=== PATIENT | male | born 1950 | race Caucasian/White ===

== ENCOUNTER 2016-09-09 17:43 | Emergency (ER) | payer OTHER ==
[~2016-09-09 17:43] MED LIST: ALDACTONE25 MG PO; BUMETANIDE1 MG PO; CARVEDILOL25 MG PO; CLONAZEPAM1 MG PO; CRESTOR20 MG PO; LANTUS SOL100 UNITS/ SC; LYRICA100 MG PO; NOVOLOG PE100 UNITS/ SC; TRAZODONE HCL50 MG PO; TRIAMCINOLONE0.025 % TOP; VICODIN EQUIVAL1 TAB PO
--- NOTE | 2016-09-09 18:53 | DIAGNOSTIC IMAGING REPORT ---
PROCEDURE: XR KNEE 4 VIEWS - LEFT INDICATION: TRAUMA/INJURY TECHNIQUE: Four views. COMPARISON: None. FINDINGS: Mild patellofemoral compartment degenerative changes. No fracture or effusion. IMPRESSION: 1. Mild patellofemoral compartment degenerative changes.
--- NOTE | 2016-09-09 18:54 | ED CLINICAL REPORT ---
Clinical Report - Physicians/Mid Levels [facility] [address] [place] [address] 09/09/2016 17:44 Patient: RAIMUNDO KAMARA Time Seen: 18:09 Sep 09 2016. Arrived- By private vehicle. Historian- patient. HISTORY OF PRESENT ILLNESS Chief Complaint: Injury to left knee. The injury happened just prior to arrival. Occurred at home. The patient sustained a direct blow and crush injury. Patient is experiencing moderate pain. Patient denies injury to the head or neck. (patient reports while working on his car, losing balance, and sustaining injury to his left knee, as the wheel fell onto his left knee.). REVIEW OF SYSTEMS The patient complains of pain on weight bearing. All systems otherwise negative, except as recorded above. PAST HISTORY The patient has not had a prior injury to the same area. Problems: Headache. Diverticulitis. Fall. Sinusitis. Diarrhea. Near Syncope. Sciatica. Lumbar Strain. Renal Insufficiency. Pulmonary Nodule. Hypomagnesemia. Pharyngitis. Hyperglycemia. Cellulitis. Rt great toe pain and swelling. Cardiovascular Risk Factors. Skin Rash. Tetanus Status. Lower Extremity Pain. Peripheral Neuropathy. Atypical Chest Pain. Neuropathy. Anxiety disorder. Bursitis. Hypertension. Esophagitis. Immunizations. Diabetes Mellitus. Additional Surgeries: Cataract Surgery. Hip Surgery. Medications: Carvedilol Oral 100mg , at night . ClonazePAM Oral 1 mg, 3x a day. Lyrica Oral (Capsule 200 mg) 1 capsule, 3 x daily (ran out ). Novolog regular . Trazodone HCl Oral 100 mg, at bedtime. Allergies: No Known Drug Allergy. SOCIAL HISTORY Never smoker. No alcohol use or drug use. ADDITIONAL NOTES The nursing notes have been reviewed. PHYSICAL EXAM Vital Signs: 09/09/2016 17:52 BP: 155/84. HR: 85. RR: 20. O2 saturation: 98%. Temp: 98.2 F. Appearance: Alert. Head: Head atraumatic. ENT: Ears normal. CVS: Normal heart rate and rhythm. Heart sounds normal. Respiratory: No respiratory distress. Breath sounds normal. Back: Normal inspection. No tenderness. No vertebral point tenderness. Skin: Skin intact. Skin warm. Normal skin color. Extremities: Left hip. No tenderness or swelling. Left knee: mild tenderness and swelling located in the patella. Limited ROM secondary to pain (diminished extension). Joint effusion present. No abrasion or ecchymosis. Left leg. No tenderness or swelling. Gait: Limping gait. Neuro, Vascular and Tendons: Vascular status intact. Neuro: Oriented X 3. LABS, X-RAYS, AND EKG Lt Knee X-ray: (IMPRESSION: 1. Mild patellofemoral compartment degenerative changes. Electronically Final signed by:aPpi Small MD 09/09/2016 6:52:59 PM). PROGRESS AND PROCEDURES Course of Care: Patient here in the ER stable, no signs of any fracture. Able to ambulate. No other injuries besides the left knee. Hip and ankle are unremarkable. Patient with no pain out of proportion to injury. No laceration/ abrasion/ ecchymosis. Patient is stable. Physical exam findings are improved. Symptoms better. Patient/family counseled. Disposition: Discharged. Condition: good. CLINICAL IMPRESSION Contusion to the left knee. INSTRUCTIONS Apply ice. Elevate affected areas above chest level. You may walk and bear weight as tolerated. Prescription Medications: Hydrocodone/APAP 5mg / 325mg: take 1 orally every 6 hours as needed for pain. Dispense twelve (12). No refill. Follow-up: Follow up with your doctor in three days. (Electronically signed by Batsheva Martin P.A.-C 09/09/2016 20:10)
--- NOTE | 2016-09-09 18:54 | ED NURSING NOTES ---
Clinical Report - Nurses [facility] [address] [place] [address] 09/09/2016 17:44 Patient: RAIMUNDO KAMARA TRIAGE Triage time 17:53 Sep 09 2016. Acuity: LEVEL 5. Chief Complaint: (knee injury). --17:57 Tyshawn Perez R.N. 17:52 09/09/16. BP: 155/84. HR: 85. RR: 20. O2 saturation: 98%. Temp: 98.2 F. Pain level now 03/12. --17:57 Tyshawn Perez R.N. Weight: 108.8 kg stated. Height/Length: 72 inches Per Patient. BMI: 32.6. --17:56 Tyshawn Perez R.N. Medications Carvedilol Oral 100mg , at night . ClonazePAM Oral 1 mg, 3x a day. Lyrica Oral (Capsule 200 mg) 1 capsule, 3 x daily (ran out ). Novolog regular . Trazodone HCl Oral 100 mg, at bedtime. --17:55 Tyshawn Perez R.N. Allergies No Known Drug Allergy. --17:55 Tyshawn Perez R.N. History ( Pt reports that a wheel fell on his Left knee while he was working on his care. no obvious deformity no redness or bruising). This started just prior to arrival. SOCIAL HX: Never smoker. No alcohol use or drug use. --17:57 Tyshawn Perez R.N. PROBLEMS: Diverticulitis. Concussion. Near Syncope. Pulmonary Nodule. Hyperglycemia. Bursitis. Hypertension. Diabetes Mellitus. --17:56 Tyshawn Perez R.N. Interventions ID band on patient. To treatment room. --17:57 Tyshawn Perez R.N. PHYSICAL ASSESSMENT GENERAL / NEURO / PSYCH: Alert. Oriented X 4. Appears in no acute distress. HEENT: Pupils equal, round and reactive to light. RESPIRATORY: Respirations not labored. Breath sounds within normal limits. SKIN: Skin is dry. --17:57 Tyshawn Perez R.N. NURSING PROGRESS NOTES Patient returned from radiology by wheelchair with tech. --18:11 Inge Chen R.N. ( faviola wrap to left knee.). --18:44 Satinder Infante. DISPOSITION / DISCHARGE 18:57 09/09/16. BP: 165/77. HR: 83. RR: 18. O2 saturation: 98%. Pain level now 8/10. --18:59 Inge Chen R.N. Condition at departure: stable. No learning barriers present. Discharge instructions provided and reviewed with the patient. Reviewed medication(s) side effects, precautions, dosing and course information. Prescription(s) given to the patient. Reviewed referral to family practice for followup. Verbalized understanding. Written instructions provided in Z[place]ian. The patient was discharged home and accompanied by wearing apparel presser. He left the Emergency Department ambulatory and via private vehicle. Drapery Hanger driving. Medication list reviewed and validated. --18:59 Inge Chen R.N. Departure time: 18:59. --18:59 Inge Chen R.N. Locked/Released at 09/09/2016 21:01 by Inge Chen R.N.
--- NOTE | 2016-09-09 18:54 | ED CLINICAL REPORT ---
Clinical Report - Physicians/Mid Levels [facility] [address] [place] [address] 09/09/2016 17:44 Patient: RAIMUNDO KAMARA Time Seen: 18:09 Sep 09 2016. Arrived- By private vehicle. Historian- patient. HISTORY OF PRESENT ILLNESS Chief Complaint: Injury to left knee. The injury happened just prior to arrival. Occurred at home. The patient sustained a direct blow and crush injury. Patient is experiencing moderate pain. Patient denies injury to the head or neck. (patient reports while working on his car, losing balance, and sustaining injury to his left knee, as the wheel fell onto his left knee.). REVIEW OF SYSTEMS The patient complains of pain on weight bearing. All systems otherwise negative, except as recorded above. PAST HISTORY The patient has not had a prior injury to the same area. Problems: Headache. Diverticulitis. Fall. Sinusitis. Diarrhea. Near Syncope. Sciatica. Lumbar Strain. Renal Insufficiency. Pulmonary Nodule. Hypomagnesemia. Pharyngitis. Hyperglycemia. Cellulitis. Rt great toe pain and swelling. Cardiovascular Risk Factors. Skin Rash. Tetanus Status. Lower Extremity Pain. Peripheral Neuropathy. Atypical Chest Pain. Neuropathy. Anxiety disorder. Bursitis. Hypertension. Esophagitis. Immunizations. Diabetes Mellitus. Additional Surgeries: Cataract Surgery. Hip Surgery. Medications: Carvedilol Oral 100mg , at night . ClonazePAM Oral 1 mg, 3x a day. Lyrica Oral (Capsule 200 mg) 1 capsule, 3 x daily (ran out ). Novolog regular . Trazodone HCl Oral 100 mg, at bedtime. Allergies: No Known Drug Allergy. SOCIAL HISTORY Never smoker. No alcohol use or drug use. ADDITIONAL NOTES The nursing notes have been reviewed. PHYSICAL EXAM Vital Signs: 09/09/2016 17:52 BP: 155/84. HR: 85. RR: 20. O2 saturation: 98%. Temp: 98.2 F. Appearance: Alert. Head: Head atraumatic. ENT: Ears normal. CVS: Normal heart rate and rhythm. Heart sounds normal. Respiratory: No respiratory distress. Breath sounds normal. Back: Normal inspection. No tenderness. No vertebral point tenderness. Skin: Skin intact. Skin warm. Normal skin color. Extremities: Left hip. No tenderness or swelling. Left knee: mild tenderness and swelling located in the patella. Limited ROM secondary to pain (diminished extension). Joint effusion present. No abrasion or ecchymosis. Left leg. No tenderness or swelling. Gait: Limping gait. Neuro, Vascular and Tendons: Vascular status intact. Neuro: Oriented X 3. LABS, X-RAYS, AND EKG Lt Knee X-ray: (IMPRESSION: 1. Mild patellofemoral compartment degenerative changes. Electronically Final signed by:Papi Small MD 09/09/2016 6:52:59 PM). PROGRESS AND PROCEDURES Course of Care: Patient here in the ER stable, no signs of any fracture. Able to ambulate. No other injuries besides the left knee. Hip and ankle are unremarkable. Patient with no pain out of proportion to injury. No laceration/ abrasion/ ecchymosis. Patient is stable. Physical exam findings are improved. Symptoms better. Patient/family counseled. Disposition: Discharged. Condition: good. CLINICAL IMPRESSION Contusion to the left knee. INSTRUCTIONS Apply ice. Elevate affected areas above chest level. You may walk and bear weight as tolerated. Prescription Medications: Hydrocodone/APAP 5mg / 325mg: take 1 orally every 6 hours as needed for pain. Dispense twelve (12). No refill. Follow-up: Follow up with your doctor in three days. (Electronically signed by Batsheva Martin P.A.-C 09/09/2016 20:10)
--- NOTE | 2016-09-09 18:54 | ED ORDER SUMMARY ---
..... Patient: RAIMUNDO KAMARA OrderSheet [facility] VisitID: [id number] [address] [place] [address] 66y, M Registration Date/Time: 09/09/2016 ORDER SHEET Weight: 108.8 kg (stated) Allergies: No Known Drug Allergy GENERAL ORDERS: Knee 4V Left Urgent (18:02 09/09/2016 Kirk Abbott.A.-C) (Ack 18:02 NHouse ER Tech1) (18:48 NHouse ER Tech1) Joseph Wrap (18:39 09/09/2016 Kirk Abbott.A.-C) (18:52 Ramiro Clark) MEDICATION ORDERS: IV FLUIDS: ORDER SHEET NOTES: [Electronically signed by Batsheva Martin P.A.-C (20:10 09/09/2016)] [Electronically signed by Inge Chen R.N. (21:01 09/09/2016)] [Electronically locked/signed by Inge Chen R.N. (21:01 09/09/2016)]
--- NOTE | 2016-09-09 18:54 | ED NURSING NOTES ---
Clinical Report - Nurses [facility] [address] [place] [address] 09/09/2016 17:44 Patient: RAIMUNDO KAMARA TRIAGE Triage time 17:53 Sep 09 2016. Acuity: LEVEL 5. Chief Complaint: (knee injury). --17:57 Tyshawn Perez R.N. 17:52 09/09/16. BP: 155/84. HR: 85. RR: 20. O2 saturation: 98%. Temp: 98.2 F. Pain level now 03/12. --17:57 Tyshawn Perez R.N. Weight: 108.8 kg stated. Height/Length: 72 inches Per Patient. BMI: 32.6. --17:56 Tyshawn Perez R.N. Medications Carvedilol Oral 100mg , at night . ClonazePAM Oral 1 mg, 3x a day. Lyrica Oral (Capsule 200 mg) 1 capsule, 3 x daily (ran out ). Novolog regular . Trazodone HCl Oral 100 mg, at bedtime. --17:55 Tyshawn Perez R.N. Allergies No Known Drug Allergy. --17:55 Tyshawn Perez R.N. History ( Pt reports that a wheel fell on his Left knee while he was working on his care. no obvious deformity no redness or bruising). This started just prior to arrival. SOCIAL HX: Never smoker. No alcohol use or drug use. --17:57 Tyshawn Perez R.N. PROBLEMS: Diverticulitis. Concussion. Near Syncope. Pulmonary Nodule. Hyperglycemia. Bursitis. Hypertension. Diabetes Mellitus. --17:56 Tyshawn Perez R.N. Interventions ID band on patient. To treatment room. --17:57 Tyshawn Perez R.N. PHYSICAL ASSESSMENT GENERAL / NEURO / PSYCH: Alert. Oriented X 4. Appears in no acute distress. HEENT: Pupils equal, round and reactive to light. RESPIRATORY: Respirations not labored. Breath sounds within normal limits. SKIN: Skin is dry. --17:57 Tyshawn Perez R.N. NURSING PROGRESS NOTES Patient returned from radiology by wheelchair with tech. --18:11 Inge Chen R.N. ( faviola wrap to left knee.). --18:44 Satinder Infante. DISPOSITION / DISCHARGE 18:57 09/09/16. BP: 165/77. HR: 83. RR: 18. O2 saturation: 98%. Pain level now 8/10. --18:59 Inge Chen R.N. Condition at departure: stable. No learning barriers present. Discharge instructions provided and reviewed with the patient. Reviewed medication(s) side effects, precautions, dosing and course information. Prescription(s) given to the patient. Reviewed referral to family practice for followup. Verbalized understanding. Written instructions provided in Taiwanese. The patient was discharged home and accompanied by director instrumentation. He left the Emergency Department ambulatory and via private vehicle. Cardiovascular Technician driving. Medication list reviewed and validated. --18:59 Inge Chen R.N. Departure time: 18:59. --18:59 Inge Chen R.N. Locked/Released at 09/09/2016 21:01 by Inge Chen R.N.
--- NOTE | 2016-09-09 18:54 | ED ORDER SUMMARY ---
..... Patient: RAIMUNDO KAMARA OrderSheet [facility] VisitID: [id number] [address] [place] [address] 66y, M Registration Date/Time: 09/09/2016 ORDER SHEET Weight: 108.8 kg (stated) Allergies: No Known Drug Allergy GENERAL ORDERS: Knee 4V Left Urgent (18:02 09/09/2016 Kirk Abbott.A.-C) (Ack 18:02 NHouse ER Tech1) (18:48 NHouse ER Tech1) Joseph Wrap (18:39 09/09/2016 Kirk Abbott.A.-C) (18:52 Ramiro Clark) MEDICATION ORDERS: IV FLUIDS: ORDER SHEET NOTES: [Electronically signed by Batsheva Martin P.A.-C (20:10 09/09/2016)] [Electronically signed by Inge Chen R.N. (21:01 09/09/2016)] [Electronically locked/signed by Inge Chen R.N. (21:01 09/09/2016)]
--- NOTE | 2016-09-09 21:01 | ED MAR SUMMARY ---
..... Medication Administration Record [facility] [address], [place] [id number] Patient: RAIMUNDO KAMARA Visit ID: [id number] 66y, M Weight: 108.8 kg Height/Length: 72 in BMI: 32.6 ALLERGIES: No Known Drug Allergy
--- NOTE | 2016-09-09 21:01 | ED MAR SUMMARY ---
..... Medication Administration Record [facility] [address] [place] [place], [place] [id number] Patient: RAIMUNDO KAMARA Visit ID: [id number] 66y, M Weight: 108.8 kg Height/Length: 72 in BMI: 32.6 ALLERGIES: No Known Drug Allergy
--- NOTE | 2016-09-09 21:01 | ED MED RECONCILIATION SUMMARY ---
Patient: RAIMUNDO KAMARA Medication Reconciliation Report [facility] VisitID: [id number] [address] [place] [address] 66y, M Registration Date/Time: 09/09/2016 Weight: 108.8 kg Height/Length: 72 in. BMI: 32.6 ALLERGIES: No Known Drug Allergy The patient's Home Medications are listed below: THE FOLLOWING MEDICATIONS NEED TO BE RECONCILED: Carvedilol Oral 100mg , at night ClonazePAM Oral 1 mg, 3x a day Lyrica Oral (200 mg) 1 capsule, 3 x daily, ran out Novolog regular Trazodone HCl Oral 100 mg, at bedtime The source(s) of the original Home Medication information: Not obtained. The following Medications were given to the patient in the Emergency Department: None. The following Medications were prescribed to the patient: Hydrocodone/APAP 5mg / 325mg: take 1 orally every 6 hours as needed for pain. Dispense twelve (12). No refill. -- Batsheva Martin PáFtimaAElmoC
--- NOTE | 2016-09-09 21:01 | ED DISCHARGE INSTRUCTIONS ---
Patient: RAIMUNDO KAMARA General Instructions [facility] VisitID: [id number] [place] [address] 66y, M Registration Date/Time: 09/09/2016 Contusion to the left knee. INSTRUCTIONS Apply ice. Elevate affected areas above chest level. You may walk and bear weight as tolerated. Prescription Medications: Hydrocodone/APAP 5mg / 325mg: take 1 orally every 6 hours as needed for pain. Dispense twelve (12). No refill. Follow-up: Follow up with your doctor in three days. ADDITIONAL INFORMATION Contusion:Lower Extremity You have a CONTUSION of your LOWER extremity (leg, knee, ankle, foot, or toes). This causes local pain, swelling and sometimes bruising. There are no broken bones. This injury may take from a few days to a few weeks to heal. Home Care: 1) Keep your leg elevated to reduce pain and swelling. When sleeping, place a pillow under the injured leg. When sitting, support the injured leg so it is level with your waist. This is very important during the first 48 hours. 2) If CRUTCHES have been advised, do not bear full weight on the injured leg until you can do so without pain. You may return to sports when you are able to hop and run on the injured leg without pain. 3) Apply an ice pack (ice cubes in a plastic bag, wrapped in a towel) over the injured area for 20 minutes every 1-2 hours the first day for pain relief. Continue this 3-4 times a day until the pain and swelling goes away. 4) You may use acetaminophen (Tylenol) or ibuprofen (Motrin, Advil) to control pain, unless another pain medicine was prescribed. [ NOTE : If you have chronic liver or kidney disease or ever had a stomach ulcer or GI bleeding, talk with your doctor before using these medicines.] Follow Up with your doctor or this facility if you are not starting to improve within the next THREE days. [NOTE: If X-rays were taken, they will be reviewed by a radiologist. You will be notified of any new findings that may affect your care.] Get Prompt Medical Attention if any of the following occur: -- Pain or swelling increases -- Toes become cold, blue, numb or tingly -- Redness, warmth or drainage from the skin Hydrocodone Bitartrate, Acetaminophen Oral tablet What is this medicine? ACETAMINOPHEN; HYDROCODONE (a set a CHERRY jorden fen; uriel droe KOE done) is a pain reliever. It is used to treat mild to moderate pain. How should I use this medicine? Take this medicine by mouth. Swallow it with a full glass of water. Follow the directions on the prescription label. If the medicine upsets your stomach, take the medicine with food or milk. Do not take more than you are told to take. Talk to your stereo plotter operator regarding the use of this medicine in children. This medicine is not approved for use in children. What side effects may I notice from receiving this medicine? Side effects that you should report to your doctor or health skin care technician as soon as possible: allergic reactions like skin rash, itching or hives, swelling of the face, lips, or tongue breathing problems confusion feeling faint or lightheaded, falls stomach pain yellowing of the eyes or skin Side effects that usually do not require medical attention (report to your doctor or health skin care technician if they continue or are bothersome): nausea, vomiting stomach upset What may interact with this medicine? alcohol antihistamines isoniazid medicines for depression, anxiety, or psychotic disturbances medicines for sleep muscle relaxants naltrexone narcotic medicines (opiates) for pain phenobarbital ritonavir tramadol What if I miss a dose? If you miss a dose, take it as soon as you can. If it is almost time for your next dose, take only that dose. Do not take double or extra doses. Where should I keep my medicine? Keep out of the reach of children. This medicine can be abused. Keep your medicine in a safe place to protect it from theft. Do not share this medicine with anyone. Selling or giving away this medicine is dangerous and against the law. Store at room temperature between 15 and 30 degrees C (59 and 86 degrees F). Protect from light. Keep container tightly closed. Throw away any unused medicine after the expiration date. Discard unused medicine and used packaging carefully. Pets and children can be harmed if they find used or lost packages. What should I tell my health care provider before I take this medicine? They need to know if you have any of these conditions: brain tumor Crohn's disease, inflammatory bowel disease, or ulcerative colitis drink more than 3 alcohol-containing drinks per day drug abuse or addiction head injury heart or circulation problems kidney disease or problems going to the bathroom liver disease lung disease, asthma, or breathing problems an unusual or allergic reaction to acetaminophen, hydrocodone, other opioid analgesics, other medicines, foods, dyes, or preservatives or trying to get breast-feeding What should I watch for while using this medicine? Tell your doctor or health skin care technician if your pain does not go away, if it gets worse, or if you have new or a different type of pain. You may develop tolerance to the medicine. Tolerance means that you will need a higher dose of the medicine for pain relief. Tolerance is normal and is expected if you take the medicine for a long time. Do not suddenly stop taking your medicine because you may develop a severe reaction. Your body becomes used to the medicine. This does NOT mean you are addicted. Addiction is a behavior related to getting and using a drug for a non-medical reason. If you have pain, you have a medical reason to take pain medicine. Your doctor will tell you how much medicine to take. If your doctor wants you to stop the medicine, the dose will be slowly lowered over time to avoid any side effects. You may get drowsy or dizzy when you first start taking the medicine or change doses. Do not drive, use machinery, or do anything that may be dangerous until you know how the medicine affects you. Stand or sit up slowly. There are different types of narcotic medicines (opiates) for pain. If you take more than one type at the same time, you may have more side effects. Give your health care provider a list of all medicines you use. Your doctor will tell you how much medicine to take. Do not take more medicine than directed. Call emergency for help if you have problems breathing. The medicine will cause constipation. Try to have a bowel movement at least every 2 to 3 days. If you do not have a bowel movement for 3 days, call your doctor or health skin care technician. Too much acetaminophen can be very dangerous. Do not take Tylenol (acetaminophen) or medicines that contain acetaminophen with this medicine. Many non-prescription medicines contain acetaminophen. Always read the labels carefully. You have been given the following additional information: Contusion, Lower Extremity Hydrocodone Bitartrate, Acetaminophen Oral tablet You may walk and bear weight as tolerated. (Electronically signed by Batsheva Martin P.A.-C 09/09/2016 20:10)
--- NOTE | 2016-09-09 21:01 | ED MED RECONCILIATION SUMMARY ---
Patient: RAIMUNDO KAMARA Medication Reconciliation Report [facility] VisitID: [id number] [address] [place] [address] 66y, M Registration Date/Time: 09/09/2016 Weight: 108.8 kg Height/Length: 72 in. BMI: 32.6 ALLERGIES: No Known Drug Allergy The patient's Home Medications are listed below: THE FOLLOWING MEDICATIONS NEED TO BE RECONCILED: Carvedilol Oral 100mg , at night ClonazePAM Oral 1 mg, 3x a day Lyrica Oral (200 mg) 1 capsule, 3 x daily, ran out Novolog regular Trazodone HCl Oral 100 mg, at bedtime The source(s) of the original Home Medication information: Not obtained. The following Medications were given to the patient in the Emergency Department: None. The following Medications were prescribed to the patient: Hydrocodone/APAP 5mg / 325mg: take 1 orally every 6 hours as needed for pain. Dispense twelve (12). No refill. -- Batsheva Martin PFátimaAElmoC
--- NOTE | 2016-09-09 21:01 | ED DISCHARGE INSTRUCTIONS ---
Patient: RAIMUNDO KAMARA General Instructions [facility] VisitID: [id number] [place] [address] 66y, M Registration Date/Time: 09/09/2016 Contusion to the left knee. INSTRUCTIONS Apply ice. Elevate affected areas above chest level. You may walk and bear weight as tolerated. Prescription Medications: Hydrocodone/APAP 5mg / 325mg: take 1 orally every 6 hours as needed for pain. Dispense twelve (12). No refill. Follow-up: Follow up with your doctor in three days. ADDITIONAL INFORMATION Contusion:Lower Extremity You have a CONTUSION of your LOWER extremity (leg, knee, ankle, foot, or toes). This causes local pain, swelling and sometimes bruising. There are no broken bones. This injury may take from a few days to a few weeks to heal. Home Care: 1) Keep your leg elevated to reduce pain and swelling. When sleeping, place a pillow under the injured leg. When sitting, support the injured leg so it is level with your waist. This is very important during the first 48 hours. 2) If CRUTCHES have been advised, do not bear full weight on the injured leg until you can do so without pain. You may return to sports when you are able to hop and run on the injured leg without pain. 3) Apply an ice pack (ice cubes in a plastic bag, wrapped in a towel) over the injured area for 20 minutes every 1-2 hours the first day for pain relief. Continue this 3-4 times a day until the pain and swelling goes away. 4) You may use acetaminophen (Tylenol) or ibuprofen (Motrin, Advil) to control pain, unless another pain medicine was prescribed. [ NOTE : If you have chronic liver or kidney disease or ever had a stomach ulcer or GI bleeding, talk with your doctor before using these medicines.] Follow Up with your doctor or this facility if you are not starting to improve within the next THREE days. [NOTE: If X-rays were taken, they will be reviewed by a radiologist. You will be notified of any new findings that may affect your care.] Get Prompt Medical Attention if any of the following occur: -- Pain or swelling increases -- Toes become cold, blue, numb or tingly -- Redness, warmth or drainage from the skin Hydrocodone Bitartrate, Acetaminophen Oral tablet What is this medicine? ACETAMINOPHEN; HYDROCODONE (a set a CHERRY jorden fen; uriel droe KOE done) is a pain reliever. It is used to treat mild to moderate pain. How should I use this medicine? Take this medicine by mouth. Swallow it with a full glass of water. Follow the directions on the prescription label. If the medicine upsets your stomach, take the medicine with food or milk. Do not take more than you are told to take. Talk to your frame tender regarding the use of this medicine in children. This medicine is not approved for use in children. What side effects may I notice from receiving this medicine? Side effects that you should report to your doctor or health life care planner as soon as possible: allergic reactions like skin rash, itching or hives, swelling of the face, lips, or tongue breathing problems confusion feeling faint or lightheaded, falls stomach pain yellowing of the eyes or skin Side effects that usually do not require medical attention (report to your doctor or health life care planner if they continue or are bothersome): nausea, vomiting stomach upset What may interact with this medicine? alcohol antihistamines isoniazid medicines for depression, anxiety, or psychotic disturbances medicines for sleep muscle relaxants naltrexone narcotic medicines (opiates) for pain phenobarbital ritonavir tramadol What if I miss a dose? If you miss a dose, take it as soon as you can. If it is almost time for your next dose, take only that dose. Do not take double or extra doses. Where should I keep my medicine? Keep out of the reach of children. This medicine can be abused. Keep your medicine in a safe place to protect it from theft. Do not share this medicine with anyone. Selling or giving away this medicine is dangerous and against the law. Store at room temperature between 15 and 30 degrees C (59 and 86 degrees F). Protect from light. Keep container tightly closed. Throw away any unused medicine after the expiration date. Discard unused medicine and used packaging carefully. Pets and children can be harmed if they find used or lost packages. What should I tell my health care provider before I take this medicine? They need to know if you have any of these conditions: brain tumor Crohn's disease, inflammatory bowel disease, or ulcerative colitis drink more than 3 alcohol-containing drinks per day drug abuse or addiction head injury heart or circulation problems kidney disease or problems going to the bathroom liver disease lung disease, asthma, or breathing problems an unusual or allergic reaction to acetaminophen, hydrocodone, other opioid analgesics, other medicines, foods, dyes, or preservatives or trying to get breast-feeding What should I watch for while using this medicine? Tell your doctor or health life care planner if your pain does not go away, if it gets worse, or if you have new or a different type of pain. You may develop tolerance to the medicine. Tolerance means that you will need a higher dose of the medicine for pain relief. Tolerance is normal and is expected if you take the medicine for a long time. Do not suddenly stop taking your medicine because you may develop a severe reaction. Your body becomes used to the medicine. This does NOT mean you are addicted. Addiction is a behavior related to getting and using a drug for a non-medical reason. If you have pain, you have a medical reason to take pain medicine. Your doctor will tell you how much medicine to take. If your doctor wants you to stop the medicine, the dose will be slowly lowered over time to avoid any side effects. You may get drowsy or dizzy when you first start taking the medicine or change doses. Do not drive, use machinery, or do anything that may be dangerous until you know how the medicine affects you. Stand or sit up slowly. There are different types of narcotic medicines (opiates) for pain. If you take more than one type at the same time, you may have more side effects. Give your health care provider a list of all medicines you use. Your doctor will tell you how much medicine to take. Do not take more medicine than directed. Call emergency for help if you have problems breathing. The medicine will cause constipation. Try to have a bowel movement at least every 2 to 3 days. If you do not have a bowel movement for 3 days, call your doctor or health life care planner. Too much acetaminophen can be very dangerous. Do not take Tylenol (acetaminophen) or medicines that contain acetaminophen with this medicine. Many non-prescription medicines contain acetaminophen. Always read the labels carefully. You have been given the following additional information: Contusion, Lower Extremity Hydrocodone Bitartrate, Acetaminophen Oral tablet You may walk and bear weight as tolerated. (Electronically signed by Batsheva Martin P.A.-C 09/09/2016 20:10)
== END 2016-09-09 18:59 | disposition home or self-care (01) ==
LOC: ED SRH 17:43
DX: S80.02XA Contusion of left knee, initial encounter (principal); W22.8XXA Striking against or struck by other objects, initial encounter; Y92.009 Unspecified place in unspecified non-institutional (private) residence as the place of occurrence of the external cause; Y99.8 Other external cause status; Z79.899 Other long term (current) drug therapy; E11.9 Type 2 diabetes mellitus without complications; I10 Essential (primary) hypertension; Z79.4 Long term (current) use of insulin; Y93.89 Activity, other specified

== ENCOUNTER 2016-09-11 10:45 | Emergency (ER) | payer OTHER ==
--- NOTE | 2016-09-11 13:28 | ED CLINICAL REPORT ---
Clinical Report - Physicians/Mid Levels [facility] [address] [place] [address] 09/11/2016 10:47 Patient: RAIMUNDO KAMARA Time Seen: 12:06; initial patient contact. Arrived- By private vehicle. Historian- patient. HISTORY OF PRESENT ILLNESS Chief Complaint: Injury to left knee. The injury happened 2 days ago. Occurred at home. The patient sustained a direct blow. Patient is experiencing moderate pain. Patient denies injury to the head or neck. (Pt states he is out of pain meds. Was seen yesterday and filled 12 Hydrocodone. Pt also recceives 90 Hydrocodone 10/325 from his PCP monthly and last filled on 08/26/16. When confronted about this, he stated jacquelin pain meds from his PCP is for something else.). REVIEW OF SYSTEMS The patient complains of pain on weight bearing. He has had swelling. All systems otherwise negative, except as recorded above. PAST HISTORY ( Contusion. Headache. Diverticulitis. Concussion. Fall. Sinusitis. Diarrhea. Near Syncope. Sciatica. Lumbar Strain. Renal Insufficiency. Pulmonary Nodule. Hypomagnesemia. Pharyngitis. Hyperglycemia. Dehydration. Cellulitis. Rt great toe pain and swelling. Cardiovascular Risk Factors. Skin Rash. Tetanus Status. Lower Extremity Pain. Peripheral Neuropathy. Atypical Chest Pain. Neuropathy. Anxiety disorder. Bursitis. Hypertension. Esophagitis. Immunizations. Diabetes Mellitus. --11:05 Cheryl Conti R.N. Diverticulitis [RuleOut]. Abdominal Pain [RuleOut]. --11:05 Cheryl Conti R.N. ADDITIONAL SURGERIES: Cataract Surgery. Hip Surgery). Medications: Carvedilol Oral 100mg , at night . ClonazePAM Oral 1 mg, 3x a day. Lyrica Oral (Capsule 200 mg) 1 capsule, 3 x daily (ran out ). Novolog regular . Trazodone HCl Oral 100 mg, at bedtime. Allergies: No Known Drug Allergy. SOCIAL HISTORY Never smoker. No alcohol use or drug use. ADDITIONAL NOTES The nursing notes have been reviewed with agreement regarding the chief complaint, PMH and patient medications and allergies. PHYSICAL EXAM Appearance: Alert. Oriented X3. No acute distress. Extremities: Left knee: mild tenderness and small abrasion and ecchymosis. No erythema or swelling. No limitation in ROM. Lower extremity exam otherwise negative. Gait: Normal gait. Neuro: Oriented X 3. PROGRESS AND PROCEDURES Disposition: Discharged home in good condition. Condition: good. CLINICAL IMPRESSION Narcotic dependence (hydrocodone). 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 Single contusion to the left knee. INSTRUCTIONS Apply ice for 20 minutes four times a day. Don't apply ice directly to skin. Your Current Medications: CONTINUE TAKING THE FOLLOWING MEDICATIONS: Carvedilol Oral : 100mg at night. ClonazePAM Oral : 1 mg 3x a day. Lyrica Oral : Capsule 200 mg, 1 capsule 3 x daily, ran out . Novolog regular *. Trazodone HCl Oral : 100 mg at bedtime. Follow-up: Follow up with your doctor in about four days. Call for an appointment. Blood pressure screening was not performed during this visit because the patient has an active diagnosis of hypertension. (Electronically signed by Trevor Bullard Dr. 09/11/2016 22:19)
--- NOTE | 2016-09-11 13:28 | ED ORDER SUMMARY ---
..... Patient: RAIMUNDO KAMARA OrderSheet [facility] VisitID: [id number] [address] [place] [address] 66y, M Registration Date/Time: 09/11/2016 ORDER SHEET Weight: 108.8 kg (stated) Allergies: No Known Drug Allergy GENERAL ORDERS: MEDICATION ORDERS: Toradol IM 60 mg (NOW) (12:12 09/11/2016 Bernadette Sahni) (12:33 Kiarra R.NFátima) IV FLUIDS: ORDER SHEET NOTES: [Electronically signed by Kalli Alvares R.N. (13:52 09/11/2016)] [Electronically signed by Trevor Bullard Dr. (22:19 09/11/2016)] [Electronically locked/signed by Kalli Alvares R.N. (13:52 09/11/2016)]
--- NOTE | 2016-09-11 13:28 | ED NURSING NOTES ---
Clinical Report - Nurses [facility] [address] [address] 09/11/2016 10:47 Patient: RAIMUNDO KAMARA TRIAGE Triage time 11:Sep 11 2016. Acuity: LEVEL 4. Chief Complaint: LEFT LOWER EXTREMITY PAIN. Alert. No acute distress. ODELL COMA SCORE: [place] Coma Scale: 15- eyes open spontaneously (4); best verbal response- oriented x 4 (5); best motor response- obeys commands (6). --11:07 Cheryl Conti R.N. 11:01 09/11/16. BP: 130/70. HR: 76. RR: 18. O2 saturation: 94%. Temp: 98.3 F. Pain level now 9/10. --11:07 Cheryl Conti R.N. Weight: 108.8 kg stated. Height/Length: 68 inches Per Patient. BMI: 36.5. --11:01 Cheryl Conti R.N. Medications Carvedilol Oral 100mg , at night . ClonazePAM Oral 1 mg, 3x a day. Lyrica Oral (Capsule 200 mg) 1 capsule, 3 x daily (ran out ). Novolog regular . Trazodone HCl Oral 100 mg, at bedtime. --11:05 Cheryl Conti R.N. Medication/allergy information source: the patient. --11:07 Cheryl Conti R.N. Allergies No Known Drug Allergy. --11:05 Cheryl Conti R.N. History Arrived by private vehicle. Historian: patient. Accompanied by (by himself). Primary physician (Dr. Cordova). ( Working on his car , tire fell off and landed on his Left Inner Thigh/Knee area. Was seen here and xrays were done, negative. Was dispensed an RX. RX is gone. Pt is looking for some pain management.). Injury occurred. This occurred (). Occurred at home. 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 ("I can't take NSAIDS, they upset my stomach".). PAST MEDICAL HX: Immunizations: seasonal influenza. SOCIAL HX: Never smoker. No alcohol use or drug use. No infectious disease exposure. FALL RISK ASSESSMENT: Fall risk assessment completed. No fall risk identified. NUTRITIONAL RISK ASSESSMENT: The nutritional risk assessment revealed no deficiencies. FUNCTIONAL ASSESSMENT: Functional assessment: no impairments noted. LEARNING NEEDS ASSESSMENT: The learning needs assessment revealed no barriers. SKIN INTEGRITY ASSESSMENT: Skin integrity risk assessment completed. No skin integrity risk identified. --11: Cheryl Conti R.N. PROBLEMS: Contusion. Headache. Diverticulitis. Concussion. Fall. Sinusitis. Diarrhea. Near Syncope. Sciatica. Lumbar Strain. Renal Insufficiency. Pulmonary Nodule. Hypomagnesemia. Pharyngitis. Hyperglycemia. Dehydration. Cellulitis. Rt great toe pain and swelling. Cardiovascular Risk Factors. Skin Rash. Tetanus Status. Lower Extremity Pain. Peripheral Neuropathy. Atypical Chest Pain. Neuropathy. Anxiety disorder. Bursitis. Hypertension. Esophagitis. Immunizations. Diabetes Mellitus. --11: Cheryl Conti R.N. Diverticulitis [RuleOut]. Abdominal Pain [RuleOut]. --11: Cheryl Conti R.N. ADDITIONAL SURGERIES: Cataract Surgery. Hip Surgery. --11: Cheryl Conti R.N. Interventions ID band on patient. To room. --11: Cheryl Conti R.N. To waiting room. --11:08 Cheryl Conti R.N. PHYSICAL ASSESSMENT To room via wheelchair. (drove himself). GENERAL / NEURO / PSYCH: Oriented X 4. Alert. Appears in no acute distress. SKIN: Skin is warm and dry. --11: Cheryl Conti R.N. NURSING PROGRESS NOTES Patient ready for evaluation- chart flagged and ED physician notified. --11: Cheryl Conti R.N. 11:23 09/11/16. ( Pt brought to room by wheelchair). --11:23 Libby Ernst R.N. 12:33 09/11/2016 Toradol (Ketorolac Tromethamine) IM 60 mg given. Given in the right gluteus aliica. Allergies verified and confirmed 5 rights. --12:33 Libby Ernst R.N. 13:06 09/11/16. Overall patient status is improved- he states feels better. --13:06 Libby Ernst R.N. 13:45 pt gone before discharge instructions. --13:51 Kalli Alvares R.N. DISPOSITION / DISCHARGE Departure time: 1345. The patient left prior to discharge education being provided. --13:50 Kalli Alvares R.N. 13:45 09/11/16. Pain level now: 0/10. Additional comments: pt gone. --13:50 Kalli Alvraes R.N. Locked/Released at 09/11/2016 13:52 by Kalli Alvares R.N.
--- NOTE | 2016-09-11 13:28 | ED ORDER SUMMARY ---
..... Patient: RAIMUNDO KAMARA OrderSheet [facility] VisitID: [id number] [address] [place] [address] 66y, M Registration Date/Time: 09/11/2016 ORDER SHEET Weight: 108.8 kg (stated) Allergies: No Known Drug Allergy GENERAL ORDERS: MEDICATION ORDERS: Toradol IM 60 mg (NOW) (12:12 09/11/2016 Bernadette Sahni) (12:33 Kiarra R.NFátima) IV FLUIDS: ORDER SHEET NOTES: [Electronically signed by Kalli Alvares R.N. (13:52 09/11/2016)] [Electronically signed by Trevor Bullard Dr. (22:19 09/11/2016)] [Electronically locked/signed by Kalli Alvares R.N. (13:52 09/11/2016)]
--- NOTE | 2016-09-11 13:28 | ED CLINICAL REPORT ---
Clinical Report - Physicians/Mid Levels [facility] [address] [place] [address] 09/11/2016 10:47 Patient: RAIMUNDO KAMARA Time Seen: 12:06; initial patient contact. Arrived- By private vehicle. Historian- patient. HISTORY OF PRESENT ILLNESS Chief Complaint: Injury to left knee. The injury happened 2 days ago. Occurred at home. The patient sustained a direct blow. Patient is experiencing moderate pain. Patient denies injury to the head or neck. (Pt states he is out of pain meds. Was seen yesterday and filled 12 Hydrocodone. Pt also recceives 90 Hydrocodone 10/325 from his PCP monthly and last filled on 08/26/16. When confronted about this, he stated jacquelin pain meds from his PCP is for something else.). REVIEW OF SYSTEMS The patient complains of pain on weight bearing. He has had swelling. All systems otherwise negative, except as recorded above. PAST HISTORY ( Contusion. Headache. Diverticulitis. Concussion. Fall. Sinusitis. Diarrhea. Near Syncope. Sciatica. Lumbar Strain. Renal Insufficiency. Pulmonary Nodule. Hypomagnesemia. Pharyngitis. Hyperglycemia. Dehydration. Cellulitis. Rt great toe pain and swelling. Cardiovascular Risk Factors. Skin Rash. Tetanus Status. Lower Extremity Pain. Peripheral Neuropathy. Atypical Chest Pain. Neuropathy. Anxiety disorder. Bursitis. Hypertension. Esophagitis. Immunizations. Diabetes Mellitus. --11:05 Cheryl Conti R.N. Diverticulitis [RuleOut]. Abdominal Pain [RuleOut]. --11:05 Cheryl Conti R.N. ADDITIONAL SURGERIES: Cataract Surgery. Hip Surgery). Medications: Carvedilol Oral 100mg , at night . ClonazePAM Oral 1 mg, 3x a day. Lyrica Oral (Capsule 200 mg) 1 capsule, 3 x daily (ran out ). Novolog regular . Trazodone HCl Oral 100 mg, at bedtime. Allergies: No Known Drug Allergy. SOCIAL HISTORY Never smoker. No alcohol use or drug use. ADDITIONAL NOTES The nursing notes have been reviewed with agreement regarding the chief complaint, PMH and patient medications and allergies. PHYSICAL EXAM Appearance: Alert. Oriented X3. No acute distress. Extremities: Left knee: mild tenderness and small abrasion and ecchymosis. No erythema or swelling. No limitation in ROM. Lower extremity exam otherwise negative. Gait: Normal gait. Neuro: Oriented X 3. PROGRESS AND PROCEDURES Disposition: Discharged home in good condition. Condition: good. CLINICAL IMPRESSION Narcotic dependence (hydrocodone). 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 Single contusion to the left knee. INSTRUCTIONS Apply ice for 20 minutes four times a day. Don't apply ice directly to skin. Your Current Medications: CONTINUE TAKING THE FOLLOWING MEDICATIONS: Carvedilol Oral : 100mg at night. ClonazePAM Oral : 1 mg 3x a day. Lyrica Oral : Capsule 200 mg, 1 capsule 3 x daily, ran out . Novolog regular *. Trazodone HCl Oral : 100 mg at bedtime. Follow-up: Follow up with your doctor in about four days. Call for an appointment. Blood pressure screening was not performed during this visit because the patient has an active diagnosis of hypertension. (Electronically signed by Trevor Bullard Dr. 09/11/2016 22:19)
--- NOTE | 2016-09-11 13:28 | ED NURSING NOTES ---
Clinical Report - Nurses [facility] [address] [place] [address] 09/11/2016 10:47 Patient: RAIMUNDO KAMARA TRIAGE Triage time 11:Sep 11 2016. Acuity: LEVEL 4. Chief Complaint: LEFT LOWER EXTREMITY PAIN. Alert. No acute distress. ODELL COMA SCORE: [place] Coma Scale: 15- eyes open spontaneously (4); best verbal response- oriented x 4 (5); best motor response- obeys commands (6). --11:07 Cheryl Conti R.N. 11:01 09/11/16. BP: 130/70. HR: 76. RR: 18. O2 saturation: 94%. Temp: 98.3 F. Pain level now 9/10. --11:07 Cheryl Conti R.N. Weight: 108.8 kg stated. Height/Length: 68 inches Per Patient. BMI: 36.5. --11:01 Cheryl Conti R.N. Medications Carvedilol Oral 100mg , at night . ClonazePAM Oral 1 mg, 3x a day. Lyrica Oral (Capsule 200 mg) 1 capsule, 3 x daily (ran out ). Novolog regular . Trazodone HCl Oral 100 mg, at bedtime. --11:05 Cheryl Conti R.N. Medication/allergy information source: the patient. --11:07 Cheryl Conti R.N. Allergies No Known Drug Allergy. --11:05 Cheryl Conti R.N. History Arrived by private vehicle. Historian: patient. Accompanied by (by himself). Primary physician (Dr. Cordova). ( Working on his car , tire fell off and landed on his Left Inner Thigh/Knee area. Was seen here and xrays were done, negative. Was dispensed an RX. RX is gone. Pt is looking for some pain management.). Injury occurred. This occurred (). Occurred at home. 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 ("I can't take NSAIDS, they upset my stomach".). PAST MEDICAL HX: Immunizations: seasonal influenza. SOCIAL HX: Never smoker. No alcohol use or drug use. No infectious disease exposure. FALL RISK ASSESSMENT: Fall risk assessment completed. No fall risk identified. NUTRITIONAL RISK ASSESSMENT: The nutritional risk assessment revealed no deficiencies. FUNCTIONAL ASSESSMENT: Functional assessment: no impairments noted. LEARNING NEEDS ASSESSMENT: The learning needs assessment revealed no barriers. SKIN INTEGRITY ASSESSMENT: Skin integrity risk assessment completed. No skin integrity risk identified. --11: Cheryl Conti R.N. PROBLEMS: Contusion. Headache. Diverticulitis. Concussion. Fall. Sinusitis. Diarrhea. Near Syncope. Sciatica. Lumbar Strain. Renal Insufficiency. Pulmonary Nodule. Hypomagnesemia. Pharyngitis. Hyperglycemia. Dehydration. Cellulitis. Rt great toe pain and swelling. Cardiovascular Risk Factors. Skin Rash. Tetanus Status. Lower Extremity Pain. Peripheral Neuropathy. Atypical Chest Pain. Neuropathy. Anxiety disorder. Bursitis. Hypertension. Esophagitis. Immunizations. Diabetes Mellitus. --11: Cheryl Conti R.N. Diverticulitis [RuleOut]. Abdominal Pain [RuleOut]. --11: Cheryl Conti R.N. ADDITIONAL SURGERIES: Cataract Surgery. Hip Surgery. --11: Cheryl Conti R.N. Interventions ID band on patient. To room. --11: Cheryl Conti R.N. To waiting room. --11:08 Cheryl Conti R.N. PHYSICAL ASSESSMENT To room via wheelchair. (drove himself). GENERAL / NEURO / PSYCH: Oriented X 4. Alert. Appears in no acute distress. SKIN: Skin is warm and dry. --11: Cheryl Conti R.N. NURSING PROGRESS NOTES Patient ready for evaluation- chart flagged and ED physician notified. --11: Cheryl Conti R.N. 11:23 09/11/16. ( Pt brought to room by wheelchair). --11:23 Libby Ernst R.N. 12:33 09/11/2016 Toradol (Ketorolac Tromethamine) IM 60 mg given. Given in the right gluteus alicia. Allergies verified and confirmed 5 rights. --12:33 Libby Ernst R.N. 13:06 09/11/16. Overall patient status is improved- he states feels better. --13:06 Libby Ernst R.N. 13:45 pt gone before discharge instructions. --13:51 Kalli Alvares R.N. DISPOSITION / DISCHARGE Departure time: 1345. The patient left prior to discharge education being provided. --13:50 Kalli Alvares R.N. 13:45 09/11/16. Pain level now: 0/10. Additional comments: pt gone. --13:50 Kalli Alvares R.N. Locked/Released at 09/11/2016 13:52 by Kalli Alvares R.N.
--- NOTE | 2016-09-11 22:19 | ED MED RECONCILIATION SUMMARY ---
Patient: RAIMUNDO KAMARA Medication Reconciliation Report [facility] VisitID: [id number] [address] [place] [address] 66y, M Registration Date/Time: 09/11/2016 Weight: 108.8 kg Height/Length: 68 in. BMI: 36.5 ALLERGIES: No Known Drug Allergy The patient's Home Medications are listed below: CONTINUE TAKING THE FOLLOWING MEDICATIONS: Carvedilol Oral 100mg , at night ClonazePAM Oral 1 mg, 3x a day Lyrica Oral (200 mg) 1 capsule, 3 x daily, ran out Novolog regular Trazodone HCl Oral 100 mg, at bedtime The source(s) of the original Home Medication information: patient The following Medications were given to the patient in the Emergency Department: Toradol [IM] IM 60 mg, administered: 09/11/2016 12:33:00 PM The following Medications were prescribed to the patient: None.
--- NOTE | 2016-09-11 22:19 | ED MAR SUMMARY ---
..... Medication Administration Record [facility] [address] [place] [address] Patient: RAIMUNDO KAMARA Visit ID: [id number] 66y, M Weight: 108.8 kg Height/Length: 68 in BMI: 36.5 ALLERGIES: No Known Drug Allergy Given 12:33 09/11/2016 Libby Ernst R.N. Medication Administered: TORADOL [IM] (KETOROLAC TROMETHAMINE), Dose: 60 mg IM. Medication Ordered: Toradol IM 60 mg (NOW).
--- NOTE | 2016-09-11 22:19 | ED MAR SUMMARY ---
..... Medication Administration Record [facility] [address] [place] [address] Patient: RAIMUNDO KAMARA Visit ID: [id number] 66y, M Weight: 108.8 kg Height/Length: 68 in BMI: 36.5 ALLERGIES: No Known Drug Allergy Given 12:33 09/11/2016 Libby Ernst R.N. Medication Administered: TORADOL [IM] (KETOROLAC TROMETHAMINE), Dose: 60 mg IM. Medication Ordered: Toradol IM 60 mg (NOW).
--- NOTE | 2016-09-11 22:19 | ED MED RECONCILIATION SUMMARY ---
Patient: RAIMUNDO KAMARA Medication Reconciliation Report [facility] VisitID: [id number] [address] [place] [address] 66y, M Registration Date/Time: 09/11/2016 Weight: 108.8 kg Height/Length: 68 in. BMI: 36.5 ALLERGIES: No Known Drug Allergy The patient's Home Medications are listed below: CONTINUE TAKING THE FOLLOWING MEDICATIONS: Carvedilol Oral 100mg , at night ClonazePAM Oral 1 mg, 3x a day Lyrica Oral (200 mg) 1 capsule, 3 x daily, ran out Novolog regular Trazodone HCl Oral 100 mg, at bedtime The source(s) of the original Home Medication information: patient The following Medications were given to the patient in the Emergency Department: Toradol [IM] IM 60 mg, administered: 09/11/2016 12:33:00 PM The following Medications were prescribed to the patient: None.
--- NOTE | 2016-09-11 22:19 | ED DISCHARGE INSTRUCTIONS ---
Patient: RAIMUNDO KAMARA General Instructions [facility] VisitID: [id number] [place] [address] 66y, M Registration Date/Time: 09/11/2016 Narcotic dependence (hydrocodone). 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 Single contusion to the left knee. INSTRUCTIONS Apply ice for 20 minutes four times a day. Don't apply ice directly to skin. Your Current Medications: CONTINUE TAKING THE FOLLOWING MEDICATIONS: Carvedilol Oral : 100mg at night. ClonazePAM Oral : 1 mg 3x a day. Lyrica Oral : Capsule 200 mg, 1 capsule 3 x daily, ran out . Novolog regular *. Trazodone HCl Oral : 100 mg at bedtime. Follow-up: Follow up with your doctor in about four days. Call for an appointment. Blood pressure screening was not performed during this visit because the patient has an active diagnosis of hypertension. ADDITIONAL INFORMATION Contusion,Soft Tissue You have a CONTUSION, which is a bruise with swelling and some bleeding under the skin. There are no broken bones. This injury takes a few days to a few weeks to heal. Home Care: 1) Keep the injured part elevated to reduce pain and swelling. This is especially important during the first 48 hours. 2) Make an ice pack (ice cubes in a plastic bag, wrapped in a towel) and apply for 20 minutes every 1-2 hours the first day. Continue this 3-4 times a day until the pain and swelling goes away. 3) You may use acetaminophen (Tylenol) or ibuprofen (Motrin, Advil) to control pain, unless another pain medicine was prescribed. [ NOTE : If you have chronic liver or kidney disease or ever had a stomach ulcer or GI bleeding, talk with your doctor before using these medicines.] Follow Up with your doctor or this facility if you are not improving within the next THREE days. [NOTE: If X-rays were taken, they will be reviewed by a radiologist. You will be notified of any new findings that may affect your care.] Get Prompt Medical Attention if any of the following occur: -- Pain or swelling increases -- Injured arm or leg becomes cold, blue, numb or tingly -- Redness, warmth or drainage from the skin Pain Management: Chronic You have a painful condition that has required frequent use of narcotic-type pain medicine. We would like to see that you receive the best possible care for your problem. To achieve this, you must have apersonal physician who can supervise a treatment plan for you. You may locate a personal physician on your own or contact one of the doctors whose name has been given to you. If your physician determines that you need to visit the ER for pain control, that doctor should provide you with a PAIN CONTRACT. This is a letter from your doctor which describes what pain medicine you may receive, how much and how often. You sign it agreeing to the terms of the treatment plan. Bring this with you each time you come to this facility. It will help the Emergency Physician provide the proper treatment for you with minimal delay. Please Note: IN THE FUTURE YOU WILL NOT BE ABLE TO RECEIVE Narcotic Pain Medicine From This Facility Without A Pain Contract Or Telephone Approval From Your Personal Physician. You have been given the following additional information: Contusion, Soft Tissue Drug Seeking Behavior, Pain Contract Required (Electronically signed by Trevor Bullard Dr. 09/11/2016 22:19)
== END 2016-09-11 13:45 | disposition home or self-care (01) ==
LOC: ED SRH 10:45
DX: S80.02XD Contusion of left knee, subsequent encounter (principal); W20.8XXD Other cause of strike by thrown, projected or falling object, subsequent encounter; F11.20 Opioid dependence, uncomplicated; E11.9 Type 2 diabetes mellitus without complications; Z79.4 Long term (current) use of insulin; Z79.899 Other long term (current) drug therapy